=== PATIENT | male | born 1950 | race Caucasian/White ===

== ENCOUNTER 2020-07-01 19:38 | Observation (INO) ==
[2020-07-01] MEDS ORDERED: dexAMETHasone**PF** 10 MG/ML VIAL IV ONE (20:14)
[2020-07-01] MEDS ORDERED: diphenhydrAMINE 50 MG/ML VIAL IV STA (20:14)
[2020-07-01] MEDS ORDERED: FAMOTIDINE 20MG IV PUSH 20 MG/5 ML SYR IV STA (20:14)
[2020-07-01] MEDS ORDERED: SODIUM CHLORIDE 0.9% 1000ML 1,000 ML IV SCH (20:15)
--- NOTE | 2020-07-01 20:23 | Emergency Department Note ---
History of Present Illness General Chief complaint: Syncope (Near Syncope) Stated complaint: syncope Time Seen by Provider: 07/01/20 19:55 Source: patient Mode of arrival: EMS Limitations: no limitations History of Present Illness Provider complaint: Allergic reaction/syncope This is a 62-year-old female who presents to the ED with a chief complaint of a syncopal episode and allergic reaction. The patient states that he is due for a colonoscopy tomorrow. He took Sutab (sodium sulfate, magnesium sulfate and pot assium chloride) as a prep for the colonoscopy at 6 PM. Less than an hour later, the patient was sitting on his chair. He felt like he had to move his bowels but did not. After sitting back in his chair, he passed out for a short period of time. He was not diaphoretic according to the . EMS was called. They found him to have a blood pressure of 80 systolic and gave him IV fluids. He has some redness in his face and some blotchy red patches on his legs that are abnormal, according to the . The patient denies any specific complaints at this time. He denies any shortness of breath. Home Medications Medication Instructions Recorded Confirmed Type Ageless Male 1 cap PO BID 12/22/19 07/01/20 History Multivitamin 50 Plus 1 tab PO QAM 12/22/19 07/01/20 History Prevagen 1 tab PO QAM 12/22/19 07/01/20 History carvedilol 3.125 mg PO BID 12/22/19 07/01/20 History cholecalciferol (vitamin D3) 2,000 unit PO BID 12/22/19 07/01/20 History [Vitamin D3] sodium sulf 1.479 gram-potas See Rx Instructions PO .COMPLEX 06/24/20 07/01/20 Rx chloride 0.188 gram-magnesium sulf #24 tab tablet Allergies Allergy/AdvReac Type Severity Reaction Status Date / Time Sulfa (Sulfonamide Allergy Unknown UNSURE OF Verified 07/01/20 19:47 Antibiotics) REACTION Past Med/Surg History Medical History Degenerative disc disease Hypertension Syncope D/T DEHYDRATION FROM TAKING ANTIBIOTIC (N/V/D) 2 YEARS AGO-NO ISSUES SINCE Surgical History Family history of reaction to anesthesia MOTHER-AGGRESSIVE BEHAVIOR WHEN WAKING UP FROM ANESTHESIA History of colonoscopy 12/2019 [facility] History of repair of rotator cuff LEFT History of tonsillectomy History of tooth extraction Family History Brother Cancer Sister Cancer Social History Smoking Status: Former smoker Second Hand Exposure: Yes (FATHER SMOKED); Hx Alcohol Use: Yes Alcohol type: beer Hx Substance Use: No Preferred Language: Serbian [employer] Required: No Beliefs That Will Affect Care: None Current Living Situation: Spouse Feels Safe at Home: Yes Assistive Devices: Denture - Upper, Denture - Lower, Glasses and Hearing Aid - Bilateral Review of Systems A total of 10 systems reviewed and were otherwise negative Physical Exam Vital Signs Vital Signs - 24 hr 07/01/20 19:51 07/01/20 20:00 07/01/20 20:34 Pulse Rate 78 77 67 Pulse Rate from SpO2 Sensor 74 66 Respiratory Rate 23 23 20 Respiratory Effort / Characteristics Non-Labored Spontaneous Respiratory Depth Normal Blood Pressure 91/60 L 102/74 126/81 Blood Pressure [Right Arm] Blood Pressure Mean 70 83 96 Blood Pressure Mean [Right Arm] Blood Pressure Position [Right Arm] Pulse Oximetry 90 80 L 97 Oxygen Delivery Method Room Air Sepsis New/Unexplained Change in Mental Status N/A Sepsis Action Taken by Nursing No Action Required 07/01/20 21:31 07/01/20 22:00 07/01/20 22:30 Pulse Rate 67 62 62 Pulse Rate from SpO2 Sensor 67 62 62 Respiratory Rate 19 17 17 Respiratory Effort / Characteristics Respiratory Depth Blood Pressure 110/67 102/77 89/64 L Blood Pressure [Right Arm] Blood Pressure Mean 81 85 72 Blood Pressure Mean [Right Arm] Blood Pressure Position [Right Arm] Pulse Oximetry 97 97 96 Oxygen Delivery Method Sepsis New/Unexplained Change in Mental Status Sepsis Action Taken by Nursing 07/01/20 22:54 07/01/20 23:30 07/01/20 23:46 Pulse Rate 62 64 Pulse Rate from SpO2 Sensor 62 64 Respiratory Rate 19 18 Respiratory Effort / Characteristics Respiratory Depth Blood Pressure 95/65 L 110/72 Blood Pressure [Right Arm] 110/72 Blood Pressure Mean 75 84 Blood Pressure Mean [Right Arm] 84 Blood Pressure Position [Right Arm] Lying Pulse Oximetry 97 99 Oxygen Delivery Method Sepsis New/Unexplained Change in Mental Status Sepsis Action Taken by Nursing CONSTITUTIONAL/VITAL SIGNS: Reviewed / noted above. GENERAL: Non-toxic in appearance. INTEGUMENTARY: Warm, dry, and [place]. There are some blotchy redness in the face, neck as well as in the legs. HEAD: Normocephalic. EYES: without scleral icterus or trauma. ENT/OROPHARYNX: clear and moist. LYMPHADENOPATHY/NECK: Is supple without lymphadenopathy or meningismus. RESPIRATORY: Lungs clear and equal. CARDIOVASCULAR: Regular rate and rhythm. GI/ABDOMEN: Soft and nontender. No organomegaly or pulsatile mass. No rebound or guarding. Normal bowel sounds. EXTREMITIES: Warm and well perfused. BACK: No CVA tenderness. NEUROLOGICAL: Intact without focal deficits. PSYCHIATRIC: normal affect. MUSCULOSKELETAL: Normally developed with good muscle tone. TRIAGE NURSING DOCUMENTATION REVIEWED. Course Administered Medications Discontinued Medications Dexamethasone Sodium Phosphate (DexamethasonePf 10 Mg/Ml Vial) 10 mg IV NOW ONE Stop: 07/01/20 20:15 Last Admin: 07/01/20 20:29 Dose: 10 mg Documented by: [id number] Diphenhydramine HCl (Diphenhydramine 50 Mg/Ml Vial) 50 mg IV NOW STA Stop: 07/01/20 20:15 Last Admin: 07/01/20 20:30 Dose: 50 mg Documented by: [id number] Sodium Chloride (Nss 1000ml) 1,000 mls @ 999 mls/hr IV .Q1H1M BARBI Stop: 07/01/20 21:15 Last Infusion: 07/01/20 23:43 Dose: 0 mls/hr Documented by: [id number] Infusion: 07/01/20 20:48 Dose: 0 mls/hr Documented by: [id number] Admin: 07/01/20 20:30 Dose: 999 mls/hr Documented by: [id number] Famotidine (Pepcid 20mg Iv Push) 20 mg in 5 mls @ 2.5 mls/min IV NOW STA Stop: 07/01/20 20:15 Last Admin: 07/01/20 20:29 Dose: 2.5 mls/min Documented by: [id number] Sodium Chloride (Nss 1000ml) 1,000 mls @ 999 mls/hr IV .Q1H1M ONE Stop: 07/02/20 00:03 Last Admin: 07/01/20 23:42 Dose: 999 mls/hr Documented by: [id number] Critical Care Time Critical Care Time: Yes Total Critical Care Time: 30 I have personally spent 30 minutes of critical care time in the direct management of this patient. This includes bedside care, interpretation of diagnostic studies, and testing, discussion with consultants, patient, and family members, and other required patient management activities. This 30 minutes is in excess of all separately billable procedures. Medical Decision Making Differential Diagnosis Differential includes acute cardiac dysrhythmia, microinfarction, CVA, TIA, dehydration, anemia, electrolyte disturbance, seizure, trauma, intracranial bleeding, acute vascular catastrophe, thoracic aortic dissection, PE, abdominal aortic aneurysm rupture, allergic reaction. Medical Records Attestation: I reviewed the patient's medical records. Home Medications Current Medication List: was personally reviewed by me Laboratory Data Attestation: I reviewed the patient's lab results. Result diagrams: 07/01/20 23:27 07/01/20 20:14 Lab Results 07/01/20 07/01/20 07/01/20 Range/Units 20:14 20:14 23:27 WBC 9.75 (4.8-10.8) K/uL RBC 5.36 (4.7-6.1) M/uL Hgb 17.2 16.1 (14.0-18.0) g/dL Hct 47.5 (42-52) % MCV 88.6 (80-100) fL MCH 32.1 (25-34) pg MCHC 36.2 H (32-36) g/dL RDW Std Deviation 42.6 (36.4-46.3) fL RDW Coeff of Kendy 13.2 (11.5-14.5) % Plt Count 180 (130-400) K/uL MPV 10.7 H (7.4-10.4) fL Immature Gran % (Auto) 0.4 % Neut % (Auto) 79.7 % Lymph % (Auto) 15.5 % [place] % (Auto) 2.4 % Eos % (Auto) 1.9 % Baso % (Auto) 0.1 % Neut # (Auto) 7.77 H (1.4-6.5) K/uL Lymph # (Auto) 1.51 (1.2-3.4) K/uL [place] # (Auto) 0.23 (0.11-0.59) K/uL Eos # (Auto) 0.19 (0-0.5) K/uL Baso # (Auto) 0.01 (0-0.2) K/uL Immature Gran # (Auto) 0.04 H (0.00-0.02) K/uL Sodium 134 L (136-145) mmol/L Potassium 3.6 (3.5-5.1) mmol/L Chloride 99 (98-107) mmol/L Carbon Dioxide 28 (21-32) mmol/L Anion Gap 8.0 (3-11) BUN 9 (7-18) mg/dl Creatinine 1.01 (0.6-1.4) mg/dl Est Cr Clr Drug Dosing 74.6 ml/min Est GFR ( Amer) 88.2 Est GFR (Non-Af Amer) 76.1 BUN/Creatinine Ratio 9.0 L (10-20) Glucose 199 H (70-99) mg/dl Calcium 8.4 L (8.5-10.1) mg/dl Total Bilirubin 0.9 (0.2-1) mg/dl AST 23 (15-37) U/L ALT 12 (12-78) U/L Alkaline Phosphatase 73 (45-117) U/L Troponin I < 0.015 (0-0.045) ng/ml Total Protein 6.1 L (6.4-8.2) gm/dl Albumin 3.4 (3.4-5.0) gm/dl Globulin 2.7 (2.5-4.0) gm/dl Albumin/Globulin Ratio 1.2 (0.9-2) Specimen Hemolysis Imaging Data Radiologist's Impression: Chest X-Ray 07/01/20 20:14 SINGLE VIEW CHEST CLINICAL HISTORY: Allergic reaction. FINDINGS: An AP, portable, upright chest radiograph is compared to study dated 08/30/2017. The cardiomediastinal silhouette is partially obscured. Chronic interstitial thickening is unchanged. There is chronic elevation of the left hemidiaphragm with atelectasis of the left lower lung. No airspace consolidation is seen typical for pneumonia and no large pleural effusion is identified. No pneumothorax is seen. The skeletal structures are osteopenic. The bony thorax is grossly intact. IMPRESSION: No acute cardiopulmonary abnormality. ACT 112: Negative or not required by law. Electronically signed by: Arvind Duke M.D. 07/01/2020 8:30 PM ECG Data Attestation: I personally reviewed and interpreted this ECG as follows: Indication: + syncope Rate (beats per minute): 80 Rhythm: + normal sinus ECG ST segments: no ST elevation ECG Findings: no PVCs MDM Narrative Patient presents for syncope shortly after taking his colonoscopy prep pills tonight. He took 12 tabs of Sutab around 6 PM. Within an hour or so, he had a syncopal episode and has developed some patchy redness in his legs and in his face and neck. He denies any respiratory issues. He did have a low blood p ressure for EMS of 80 systolic when they arrived. His initial blood pressure here was 90. Twelve-lead EKG shows a normal sinus rhythm at a rate of 80. CBC and chemistry panel was unremarkable. Glucose was 119. Troponin was negative and a chest x-ray was negative for acute disease. The patient was treated with IV fluids, he was treated with 2 L normal saline IV, IV Benadryl, IV Pepcid as well as IV Decadron. On reassessment, he states that he is feeling fine. His redness and rash seems to have improved. His blood pressure was somewhat low. I did try to perform orthostatic vital signs after the first liter of normal saline on the patient and he nearly passed out with standing. His heart rate went from the mid 50s to the mid 70s. I was unable to get a standing blood pressure as the patient nearly passed out as he was feeling lightheaded and dizzy. The patient will require observation for further evaluation and care. A repeat hemoglobin was performed. Second hemoglobin was 16.1 down from 17.2. This is likely related to dilution with the IV fluids that were provided. Impression & Plan Allergic reaction, Orthostatic hypotension Discharge Plan Visit Data Chief Complaint: Syncope (Near Syncope) Stated Complaint: syncope ED Provider: Terrence Walton Discharge Problem: Allergic reaction, Orthostatic hypotension Patient Disposition: Being Evaluated by Hospitalist Forms Stand Alone Forms: My [facility] [employer] Prescriptions Prescriptions: No Action Sutab 1.479-0.188 gram tablet See Rx Instructions PO .COMPLEX Qty: 24 RF: 0 Ageless Male 1 cap PO BID RF: 0 carvedilol 3.125 mg Tablet 3.125 mg PO BID RF: 0 Multivitamin 50 Plus Tablet 1 tab PO QAM RF: 0 cholecalciferol (vitamin D3) [Vitamin D3] 25 mcg (1,000 unit) Tablet 2,000 unit PO BID RF: 0 Prevagen 1 tab PO QAM RF: 0 Referrals Referrals: Ravi Feliciano MD [Primary Care Provider] -
--- NOTE | 2020-07-01 20:31 | XRay Report ---
SINGLE VIEW CHEST CLINICAL HISTORY: Allergic reaction. FINDINGS: An AP, portable, upright chest radiograph is compared to study dated 08/30/2017. The cardiom ediastinal silhouette is partially obscured. Chronic interstitial thickening is unchanged. There is c hronic elevation of the left hemidiaphragm with atelectasis of the left lower lung. No airspace conso lidation is seen typical for pneumonia and no large pleural effusion is identified. No pneumothorax i s seen. The skeletal structures are osteopenic. The bony thorax is grossly intact. IMPRESSION: No acute cardiopulmonary abnormality. ACT 112: Negative or not required by law. Electronically signed by: Arvind Duke M.D. 07/01/2020 8:30 PM
[2020-07-01 20:40] LABS: Basophils # (auto) 0.01 K/uL (0-0.2); Basophils % (auto) 0.1 %; Eosinophils # (auto) 0.19 K/uL (0-0.5); Eosinophils % (auto) 1.9 %; Hematocrit (blood only) 47.5 % (42-52); Hemoglobin 17.2 g/dL (14.0-18.0); Immature Granulocytes # (auto) 0.04 K/uL (0.00-0.02); Immature Granulocytes % (auto) 0.4 %; Lymphocytes # (auto) 1.51 K/uL (1.2-3.4); Lymphocytes % (auto) 15.5 %; Mean Corpuscular Hemoglobin 32.1 pg (25-34); Mean Corpuscular Hgb Conc 36.2 g/dL (32-36); Mean Corpuscular Volume 88.6 fL (80-100); Mean Platelet Volume 10.7 fL (7.4-10.4); Monocytes # (auto) 0.23 K/uL (0.11-0.59); Monocytes % (auto) 2.4 %; Neutrophils # (auto) 7.77 K/uL (1.4-6.5); Neutrophils % (auto) 79.7 %; Platelet Count 180 K/uL (130-400); RDW Coefficient of Variation 13.2 % (11.5-14.5); RDW Standard Deviation 42.6 fL (36.4-46.3); Red Blood Count 5.36 M/uL (4.7-6.1); White Blood Count 9.75 K/uL (4.8-10.8)
[2020-07-01 21:35] LABS: Alanine Aminotransferase 12 U/L (12-78); Albumin Globulin Ratio 1.2 (0.9-2); Albumin Level 3.4 gm/dl (3.4-5.0); Alkaline Phosphatase 73 U/L (45-117); Aspartate Aminotransferase 23 U/L (15-37); Bilirubin,Total 0.9 mg/dl (0.2-1); Blood Urea Nitrogen 9 mg/dl (7-18); Calcium 8.4 mg/dl (8.5-10.1); Carbon Dioxide 28 mmol/L (21-32); Chloride 99 mmol/L (98-107); Creatinine Clr Calc Pharmacy 74.6 ml/min; Est GFR (African American) 88.2; Est GFR (Non-African American) 76.1; Globulin 2.7 gm/dl (2.5-4.0); Glucose 199 mg/dl (70-99); Potassium 3.6 mmol/L (3.5-5.1); Sodium 134 mmol/L (136-145); Total Protein 6.1 gm/dl (6.4-8.2); Troponin I < 0.015 ng/ml (0-0.045)
[2020-07-01] MEDS ORDERED: SODIUM CHLORIDE 0.9% 1000ML 1,000 ML IV ONE (23:03)
[2020-07-02 01:38] LABS: Influenza A virus by PCR Negative (Neg); Influenza B virus by PCR Negative (Neg); RSV by PCR Negative (Neg); SARS CoV2 RNA(COVID-19) InHosp NEGATIVE (Negative)
[2020-07-02] MEDS ORDERED: FAMOTIDINE 20 MG in SYRINGE 3 ML IV PRN (02:08)
--- NOTE | 2020-07-02 03:18 | History & Physical Report ---
Date of Service July 02, 2020 Assessment & Plan Admission and Anticipated Discharge Date Admission Date: 69 yo M w/ pMHx. of HTN, and one prior episode of syncope; current episode likely related to vasovagal given that it was associated with a bowel movement, also experiencing potential allergic reaction to prep given rash that resolved after taking famotidine, Benadryl and dexamethasone. Syncopal event thought to be vasovagal given association with bowel movement although could also be related to hypotension given increased insensible losses from stool; currently hemodynamically stable CXR with no acute findings prior ECHO with normal structure and function - admitted to med/surg tele for observation - ECHO ordered Rash likely 2/2 colonoscopy prep.; since resolved; could be related to sulfa allergy - famotidine and Benadryl available prn - consider outpatient evaluation with allergy and immunology HTN - continue carvedilol DVT: SCD's Code: full Diet: regular History of Present Illness Chief Complaint: syncope Primary Care Provider: Ravi Feliciano MD Myron Mcelroy is here for a syncopal event. He was prepping for a colonoscopy with the same prep he had before but in pill form instead of as a liquid form which contained. He had a large bowel movement in the morning. He was feeling w obbly and sat down. He does not remember the event but woke up in the ambulance after. He had some sweating and nausea associated with the event. He was reported to have a red rash on his face and legs but no lip or tongue swelling. He was having the Colonoscopy to follow up a colonoscopy where a polyp was removed and evert were placed. He had a ECHO in the past for admission in 2018 for syncope that was thought to be due to hypotension/ETOH. Allergies Allergy/AdvReac Type Severity Reaction Status Date / Time Sulfa (Sulfonamide Allergy Unknown UNSURE OF Verified 07/01/20 19:47 Antibiotics) REACTION Home Medications Medication Instructions Recorded Confirmed Type Ageless Male 1 cap PO BID 12/22/19 07/01/20 History Multivitamin 50 Plus 1 tab PO QAM 12/22/19 07/01/20 History Prevagen 1 tab PO QAM 12/22/19 07/01/20 History carvedilol 3.125 mg PO BID 12/22/19 07/01/20 History cholecalciferol (vitamin D3) 2,000 unit PO BID 12/22/19 07/01/20 History [Vitamin D3] sodium sulf 1.479 gram-potas See Rx Instructions PO .COMPLEX 06/24/20 07/01/20 Rx chloride 0.188 gram-magnesium sulf #24 tab tablet Past Med/Surg History Medical History Degenerative disc disease Hypertension Syncope D/T DEHYDRATION FROM TAKING ANTIBIOTIC (N/V/D) 2 YEARS AGO-NO ISSUES SINCE Surgical History Family history of reaction to anesthesia MOTHER-AGGRESSIVE BEHAVIOR WHEN WAKING UP FROM ANESTHESIA History of colonoscopy 12/2019 [facility] History of repair of rotator cuff LEFT History of tonsillectomy History of tooth extraction Family History Brother Cancer Sister Cancer Social History Smoking Status: Never smoker Second Hand Exposure: Yes (FATHER SMOKED); Hx Alcohol Use: No Hx Substance Use: No Preferred Language: Congolese Sand 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: No Beliefs That Will Affect Care: None Current Living Situation: Spouse Other Information That Helps Us Care for You: No Feels Safe at Home: Yes Safety Concerns: Feels Safe At This Time Assistive Devices: None Review of Systems Review of Systems: Constitutional: denies fevers, chills, vomiting, night sweats admits fatigue, diaphoresis Head: denies trauma, headache confusion, vision changes admits lightheadedness associated with event Neurologic: denies slurring of speech, focal weakness, numbness and tingling ENT: denies rhinorrhea, stuffiness, sneezing Cardiac: denies chest pain, palpitations, admit palpitations Physical Exam Constitutional: WD/WN, vitals as above Eyes: PERRL, conjunctivae normal, anicteric sclerae ENMT: external ear and nose normal, oropharynx normal Neck: normal visual inspection Respiratory: normal respiratory effort, lungs clear to auscultation Cardiovascular: RRR, no murmur, no edema Gastrointestinal (Abdomen): normal bowel sounds, soft, nontender, no hepatosplenomegaly Musculoskeletal: no cyanosis or clubbing, extremities motor strength 5/5 Skin: no rashes, warm and dry Neurologic: CN's II-XI intact bilaterally; no focal motor deficits Psychiatric: A+Ox3, euthymic affect Results & Data Results & Data ([facility]) Vital Signs (Past 12 Hours) Vital Signs Pulse Resp BP BP Pulse Ox 07/02/20 03:10 73 25 H 147/90 H 98 07/02/20 03:00 69 22 141/87 H 98 07/02/20 02:30 67 20 145/86 H 98 07/02/20 02:01 71 21 98 07/02/20 02:00 68 21 162/88 H 98 07/02/20 01:00 67 20 135/89 99 07/02/20 00:30 66 15 137/78 99 07/02/20 00:01 71 18 126/72 99 07/01/20 23:46 110/72 07/01/20 23:30 64 18 110/72 99 07/01/20 22:54 62 19 95/65 L 97 07/01/20 22:30 62 17 89/64 L 96 07/01/20 22:00 62 17 102/77 97 07/01/20 21:31 67 19 110/67 97 07/01/20 20:34 67 20 126/81 97 07/01/20 20:00 77 23 102/74 80 L 07/01/20 19:51 78 23 91/60 L 90 CBC Results Results Complete Blood Count Results: RBC 4.65 M/uL (4.7-6.1) L 07/02/20 WBC 10.57 K/uL (4.8-10.8) 07/02/20 Hgb 15.2 g/dL (14.0-18.0) 07/02/20 Hct 41.2 % (42-52) L 07/02/20 Plt Count 181 K/uL (130-400) 07/02/20 Chemistry (BMP) Results BMP Results: Sodium 139 mmol/L (136-145) 07/02/20 Potassium 4.2 mmol/L (3.5-5.1) 07/02/20 Chloride 104 mmol/L (98-107) 07/02/20 BUN 13 mg/dl (7-18) 07/02/20 Creatinine 0.91 mg/dl (0.6-1.4) 07/02/20 Glucose 169 mg/dl (70-99) H 07/02/20 Code Status & VTE Plan VTE Prophylaxis Plan VTE Prophylaxis will be ordered: Yes Supervising Physician Co-Signing Physician Notes Attending addendum: I have physically seen this patient, have supervised the medical residents activities, and agree with the H&P unless as otherwise noted. Assessment and Plan: Syncope- Likely vasovagal associated with drinking colonoscopy prep. Follow telemetry for possible arrhythmia Generalized skin rash- Occurred associated with above. Famotidine and Benadryl as noted Resolved Hypertension- Continue carvedilol Remaining orders and notations as noted Resident Activity Tracking Resident Involvement: Resident Care Provided Care Provided: Adult Hospital Medicine
[2020-07-02] MEDS ORDERED: ACETAMINOPHEN 325 MG TAB PO PRN (04:19)
[2020-07-02] MEDS ORDERED: diphenhydrAMINE Capsule 25 MG CAP PO PRN (04:19)
[2020-07-02 05:41] LABS: Basophils # (auto) 0.02 K/uL (0-0.2); Basophils % (auto) 0.2 %; Hematocrit (blood only) 41.2 % (42-52); Hemoglobin 15.2 g/dL (14.0-18.0); Immature Granulocytes # (auto) 0.03 K/uL (0.00-0.02); Immature Granulocytes % (auto) 0.3 %; Lymphocytes % (auto) 3.8 %; Mean Corpuscular Hemoglobin 32.7 pg (25-34); Mean Corpuscular Hgb Conc 36.9 g/dL (32-36); Mean Corpuscular Volume 88.6 fL (80-100); Mean Platelet Volume 10.7 fL (7.4-10.4); Monocytes # (auto) 0.28 K/uL (0.11-0.59); Monocytes % (auto) 2.6 %; Neutrophils # (auto) 9.84 K/uL (1.4-6.5); Neutrophils % (auto) 93.1 %; Platelet Count 181 K/uL (130-400); RDW Coefficient of Variation 13.5 % (11.5-14.5); RDW Standard Deviation 43.3 fL (36.4-46.3); Red Blood Count 4.65 M/uL (4.7-6.1); White Blood Count 10.57 K/uL (4.8-10.8)
[2020-07-02 06:40] LABS: BUN Creatinine Ratio 14.8 (10-20); Calcium 7.8 mg/dl (8.5-10.1); Creatinine Clr Calc Pharmacy 82.7 ml/min; Est GFR (Non-African American) 86.3
[2020-07-02 08:08] LABS: Potassium 4.2 mmol/L (3.5-5.1)
[2020-07-02] MEDS ORDERED: carvediloL 3.125 MG TAB PO SCH (09:00)
--- NOTE | 2020-07-02 10:29 | Discharge Summary ---
Date of Service July 02, 2020 Admission HPI Per Admitting Provider Myron Mcelroy is here for a syncopal event. He was prepping for a colonoscopy with the same prep he had before but in pill form instead of as a liquid form which contained. He had a large bowel movement in the morning. He was feeling wobbly and sat down. He does not remember the event but woke up in the ambulance after. He had some sweating and nausea associated with the event. He was reported to have a red rash on his face and legs but no lip or tongue swelling. He was having the Colonoscopy to follow up a colonoscopy where a polyp was removed and evert were placed. He had a ECHO in the past for admission in 2018 for syncope that was thought to be due to hypotension/ETOH. Admission Exam Per Admitting Provider Constitutional: WD/WN, vitals as above Eyes: PERRL, conjunctivae normal, anicteric sclerae ENMT: external ear and nose normal, oropharynx normal Neck: normal visual inspection Respiratory: normal respiratory effort, lungs clear to auscultation Cardiovascular: RRR, no murmur, no edema Gastrointestinal (Abdomen): normal bowel sounds, soft, nontender, no hepatosplenomegaly Musculoskeletal: no cyanosis or clubbing, extremities motor strength 5/5 Skin: no rashes, warm and dry Neurologic: CN's II-XI intact bilaterally; no focal motor deficits Psychiatric: A+Ox3, euthymic affect Principal Diagnosis Syncope Discharge Exam General: A&Ox3. NAD. Cooperative. HEENT: Atraumatic, normocephalic. Pulm: CTAB A&P. -wheezes, -rales, -rhonchi. Symmetrical chest rise. No increase work of breathing. No respiratory distress. Cardiac: RRR, -mrg. Radial pulses intact and symmetrical. Abdominal: soft, non-tender, non-distended, BS x 4 Neuro: CNII-XII intact, 5/5 strength bilaterally, reflexes and sensation intact bilaterally Discharge Data Allergies Allergy/AdvReac Type Severity Reaction Status Date / Time Sulfa (Sulfonamide Allergy Unknown UNSURE OF Verified 07/01/20 19:47 Antibiotics) REACTION Consultations 07/01/20 23:13 ED Decision to Admit Stat Hospital Course (1) Syncope: Myron Mcelroy is a 69 yo male with h/o HTN as well as syncope in 2018 (GI illness --> dehydration) who was admitted to [facility] on 07/02 for syncope following ingestion of bowel prep medications. Syncope - syncope lasting for several minutes with immediate return to baseline, syncope following ingestion of several bowel prep medications and immediately preceded by lightheadedness, nausea, diaphoresis, no issues in the hospital, TTE without abnormalities --> suspect vasovagal syncope - given IVFs as well as Decadron x1 and Benadryl x1 in the ED, although he felt well without symptoms even before administration of these medications - f/u with PCP - f/u with GI for colonscopy HTN - continue home Carvedilol (2) HTN (hypertension): Total Time Total Time Spent Total Time Spent (In Minutes): 30 minutes Total Time Includes: Examination of the Patient and Discharge Planning Discharge Plan Discharge Items Patient Disposition: Home - Self-Care Reason For Visit: SYNCOPE Discharge Diagnosis: Syncope Activity: Per Instructions section Non-emergency contact: Primary Care Provider Call non-emergency contact if: your symptoms worsen Follow-up/Referrals: Ravi Feliciano MD [Primary Care Provider] - Diet: Regular Addtl Attending Provider Instructions: You were admitted to [facility] on 07/02/2020 after passing out, which occurred shortly after you took several bowel prep medications for a scheduled colonoscopy today. By the time you arrived at the emergency department, you had returned to your baseline medical state without any further issues while hospitalized. You most likely experienced an event called vasovagal syncope, which is the most common cause of passing out. Thankfully, this is not a chronic condition, is unlikely to consistently recur, and is not life-threatening. You will be discharged on 07/02 in good, stable condition. You should continue to take all of your regularly scheduled medications. We recommend that you speak with your GI doctor about a different type of bowel prep for your colonoscopy. We hope you continue to feel well, and it was a pleasure to help provide your care while you were hospitalized. Pending Studies at Discharge: Yes Studies:: Transthoracic Echocardiogram Stand-Alone Forms: My [facility] [employer], Smoking Cessation Medications and DC Order Prescriptions: Continued Sutab 1.479-0.188 gram tablet See Rx Instructions PO .COMPLEX Qty: 24 RF: 0 Ageless Male 1 cap PO BID RF: 0 carvedilol 3.125 mg Tablet 3.125 mg PO BID RF: 0 Multivitamin 50 Plus Tablet 1 tab PO QAM RF: 0 cholecalciferol (vitamin D3) [Vitamin D3] 25 mcg (1,000 unit) Tablet 2,000 unit PO BID RF: 0 Prevagen 1 tab PO QAM RF: 0 Discharge Orders: Discharge Order (Routine); Ordered 07/02/20 Ordered By: Easton Pierce Admission Data Admit Date/Time: 07/02/20 02:26 Attending Provider: Darian Gtz Admit Provider: Clark Diaz Primary Care Provider: Ravi Feliciano Other Providers: Romaine Hall Other Interventions: Discharge Summary Assessment (RN) Last Done: 07/02/20 12:36 Supervising Physician Co-Signing Physician Notes I personally examined the patient and verified all humphrey points of history and exam, discussed case, and agree with decision making with Dr Pierce. Feeling better, feels like his normal self. No new complaints otherwise. Feels up to going home. Vitals noted, in general he is awake and alert pleasant no distress. HEENT normocephalic atraumatic mucous membranes moist. Breathing unlabored no accessory muscle use good effort. Skin shows no rashes no pallor or icterus. Syncopeappears to have been vasovagalstable for home. Outpatient follow-up with PCP. Follow-up with GI to revisit colonoscopy. Resident Activity Tracking Resident Involvement: Resident Care Provided Care Provided: Adult Hospital Medicine
--- NOTE | 2020-07-02 15:45 | XCELERA ---
[id number]
--- NOTE | 2020-07-02 19:42 | Billing Data ---
Date of Service July 02, 2020 Coding Level of Care Code 40665 OBS Care - Discharge
--- NOTE | 2020-07-03 05:52 | Billing Data ---
Date of Service July 03, 2020 Coding Level of Care Code 68663 OBS Care - Level 3
--- NOTE | 2020-07-03 06:09 | Electrocardiogram Report ---
Test Reason : Blood Pressure : / mmHG Vent. Rate : 081 BPM Atrial Rate : 081 BPM P-R Int : 172 ms QRS Dur : 108 ms QT Int : 418 ms P-R-T Axes : 069 011 055 degrees QTc Int : 485 ms Normal sinus rhythm Prolonged QT Abnormal ECG When compared with ECG of 31-AUG-2017 09:36, QT has lengthened Confirmed by Will Dillon ([id number]) on 07/03/2020 6:09:06 AM Referred By: REFERRED SELF Confirmed By:Will Dillon
== END 2020-07-02 13:57 | disposition home or self-care (01) ==
LOC: ED 19:38 → 2N 19:38 → SUATTDRO 07-02 02:26 → 2N 07-02 03:04